=== PATIENT | male | born 1995 | race Caucasian/White ===

== ENCOUNTER 2018-01-11 00:53 | Emergency (ER) | payer OTHER ==
--- NOTE | 2018-01-11 01:28 | ED ---
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 He has swelling and numbness over the lateral side of his ankle however he was able to complete his shift. Reports weightbearing is painful. Has not tried any medication or ice prior to arrival. Denies tingling or weakness. No previous injury to this area. Declines pain medication at this time. 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 Pain Intensity: 2 - Allergies/Home Medications Allergies/Adverse Reactions: Allergies Allergy/AdvReac Type Severity Reaction Status Date / Time amoxicillin Allergy See Comment Verified 01/11/18 00:58 Penicillins Allergy See Comment Verified 01/11/18 00:58 pets Allergy Eyes Uncoded 01/11/18 00:58 Itchy/Swollen/Red/Watery PMH/Surg Hx/FS Hx/Imm Hx Previously Healthy: Yes Endocrine/Hematology History: Denies: Hx Anticoagulant Therapy, Hx Blood Disorders, Hx Unexplained Bleeding Infectious Disease History: No Infectious Disease History: Denies: Traveled Outside the [place] in Last 30 Days - Family History Known Family History: Positive: Cardiac Disease, Other - dementia, cancer, lupus - Social History Occupation: Employed Part-time, Student Lives: Alone Alcohol Use: None Hx Substance Use: No Substance Use Type: Reports: None Hx Tobacco Use: No Smoking Status (MU): Never Smoked Tobacco Review of Systems Positive: no symptoms reported Positive: Arthralgia, Decreased ROM, Edema Skin: Negative Positive: Paresthesia. Negative: Weakness, Numbness Psychological: Normal All Other Systems Reviewed And Are Negative: Yes Physical Exam Triage Information Reviewed: Yes Vital Signs On Initial Exam: Initial Vitals Temp Pulse Resp BP Pulse Ox 97.8 F 78 18 146/79 98 01/11/18 00:55 01/11/18 00:55 01/11/18 00:55 01/11/18 00:55 01/11/18 00:55 Vital Signs Reviewed: Yes Appearance: Positive: Well-Appearing, No Pain Distress, Well-Nourished Skin: Positive: Warm, Skin Color Reflects Adequate Perfusion, Dry - Right lateral malleolus with overlying edemano ecchymosis, no erythema, no skin breakdown Head/Face: Positive: Normal Head/Face Inspection Eyes: Positive: EOMI ENT: Positive: Hearing grossly normal Respiratory/Lung Sounds: Positive: Breath Sounds Present Cardiovascular: Positive: Pulses are Symmetrical in both Upper and Lower Extremities Musculoskeletal: Positive: Limited @ - Limited right ankle range of motion due to pain however he is able to move his toes and implement some plantar/ dorsiflexion, Pain @ - Left lateral malleolus is tender to palpation; fifth metatarsals nontender to palpation, Other - Other than edema, right ankle/foot is not deformed Neurological: Positive: Normal, Sensory/Motor Intact, Alert, Oriented to Person Place, Time, CN Intact II-III Psychiatric: Positive: Normal Diagnostics - Vital Signs Vital Signs Temp Pulse Resp BP Pulse Ox 01/11/18 00:55 97.8 F 78 18 146/79 98 - Laboratory Lab Statement: Any lab studies that have been ordered have been reviewed, and results considered in the medical decision making process. Re-Evaluation - Re-Evaluation First Eval Change: Improved Lower Extremity Course/Dx - Diagnoses Provider Diagnoses: Right ankle sprain Discharge - Discharge Plan Condition: Stable Disposition: HOME Patient Education Materials: Ankle Sprain (ED), Crutch Instructions (ED) Forms: *Work Release Referrals: [facility] - Sriram HODGES [Primary Care Provider] - Additional Instructions: Rest, ice, elevate, wrap with Sandro wrap (started toes and wrap up towards ankle) Use crutches to avoid weightbearing until cleared by PCP at [facility] tomorrow to schedule an appointment for later this week or early next. Additionally, you may take ibuprofen with food for pain and swelling as well as trying topical analgesics (ie. biofreeze, arnica, etc). *If you develop numbness, tingling, weakness or coolness with skin changes indicating lack of blood flow, return to the emergency department
[2018-01-11 02:24] VITALS: BP 137/71
--- NOTE | 2018-01-11 07:59 | RAD ---
INDICATION: Right ankle injury. TECHNIQUE: 3 views of the right ankle were obtained. FINDINGS: Soft tissue swelling is noted along the anterolateral aspect of the ankle. No fracture is seen. Joint spaces appear maintained. IMPRESSION: SOFT TISSUE SWELLING, NO FRACTURE IS SEEN.
== END 2018-01-11 02:23 | disposition home or self-care (01) ==
LOC: ED 00:53
DX: S93.401A Sprain of unspecified ligament of right ankle, initial encounter (principal); M25.571 Pain in right ankle and joints of right foot; W17.2XXA Fall into hole, initial encounter; Y99.9 Unspecified external cause status
CPT/HCPCS: 99282